=== PATIENT | female | born 1995 | race Hispanic/Latino ===

== ENCOUNTER 2018-03-22 12:30 | Emergency (ER) | payer OTHER | END 2018-03-22 13:45 | disposition home or self-care (01) | LOC: EDH 12:30 | DX: O03.9 Complete or unspecified spontaneous abortion without complication (principal); O99.331 Smoking (tobacco) complicating pregnancy, first trimester; Z3A.09 9 weeks gestation of pregnancy | CPT/HCPCS: 36415; 84702 ==